=== PATIENT | male | born 1955 | race Two or more races ===

== ENCOUNTER → 2024-07-25 | Day surgery (SDC) | payer OTHER, MEDICAID ==
[~2024-07-25] VITALS: Ht 177.8 cm; Wt 89.4 kg
[~2024-07-25] MED LIST: AMLO1TAB22 PO; ATOR40TA52 PO; BUDE2SUS3 IN; LOSA-534 PO; TRAZ-227 PO
== END | disposition home or self-care (01) ==
LOC: CATH 10:12
PROVIDERS: ATTEND Internal Medicine
DX: I51.89 Other ill-defined heart diseases (principal); Z53.8 Procedure and treatment not carried out for other reasons; J44.9 Chronic obstructive pulmonary disease, unspecified; F17.210 Nicotine dependence, cigarettes, uncomplicated; Z79.899 Other long term (current) drug therapy; Z82.5 Family history of asthma and other chronic lower respiratory diseases